=== PATIENT | male | born 1950 | race Two or more races ===

== ENCOUNTER 2025-06-17 09:00 | Day surgery (SDC) | payer OTHER ==
[2025-06-09 08:43] VITALS: BP 160/78
[2025-06-09 10:04] LABS: URINE APPEARANCE Clear; URINE BILIRRUBIN Negative (NEGATIVE); URINE BLOOD Negative; URINE COLOR Yellow; URINE GLUCOSE Negative (NEGATIVE); URINE KETONE 15 (NEGATIVE); URINE LEUKOCYTE Negative; URINE NITRATE Negative; URINE PROTEIN Negative (NEGATIVE); URINE UROBILINOGEN 0.2 E.U./dl
[2025-06-09 10:10] LABS: URINE BACTERIA 8.4 uL (0.0-1933); URINE EPITHELIAL CELLS 1.5 uL (0.0-38.8)
[2025-06-09 10:14] LABS: INR 1.0
[2025-06-09 10:15] LABS: URINE CAST 0.00 uL (0.0-1.40); URINE RBC 1.0 uL (0.0-20.8); URINE WBC 1.5 uL (0.0-23.2)
[2025-06-09 10:32] LABS: ALT/SGPT 20.0 U/L (12-78); AST/SGOT 15.0 U/L (15-37); BILIRUBIN TOTAL 0.9 mg/dL (0.3-1.2); BUN CREA RATIO 22.0 (7.0-25.0); CREATININE SERUM 0.76 mg/dL (0.70-1.30); GFR 99.72; GLOBULINA 3.4 G/DL (2.4-3.5); GLUCOSE FASTING 105.0 mg/dL (65-100); OSMOLALITY SERUM 281.0 MOSM/KG (275-295)
[~2025-06-17] VITALS: Ht 180.3 cm; Wt 77.6 kg
[~2025-06-17 09:00] MED LIST: BREO ELLIPTA 21 EACH IH; LUMIGAN2.5 M1 OP; NORVASC2.5 MG PO; PROAIR RESPICL90 MCG IH; TAMS0.4C PO
[2025-06-17] MEDS ORDERED: CEFAZOLIN SODIUM 1,000 MG VIAL ONE (10:32)
[2025-06-17] MEDS ORDERED: DEXAMETHASONE SODIUM PHOSPHATE 4 MG/ML VIAL ONE (13:14)
[2025-06-17] MEDS ORDERED: LIDOCAINE HCL 1%/EPINEPHRINE 20ML VIAL IJ ONE (13:14)
[2025-06-17] MEDS ORDERED: SUGAMMADEX SODIUM 200 MG/2 ML VIAL IV ONE (14:35)
== END 2025-06-17 16:55 | disposition home or self-care (01) ==
LOC: CIR.AMB 09:00
PROVIDERS: ATTEND Orthopaedic Surgery
DX: M75.122 Complete rotator cuff tear or rupture of left shoulder, not specified as traumatic (principal); M19.012 Primary osteoarthritis, left shoulder; M75.22 Bicipital tendinitis, left shoulder; M24.112 Other articular cartilage disorders, left shoulder